=== PATIENT | male | born 1935 | race Two or more races ===

== ENCOUNTER → 2018-05-10 | Outpatient (CLI) | payer BC, MEDICARE ==
--- NOTE | 2018-05-10 12:58 | Diagnostic Imaging Report ---
EXAM: Lumbar spine radiographs-5 views INDICATION: Back pain. COMPARISON: None FINDINGS: BONES: The alignment is within normal limits. No acute displaced fractures. Vertebral body heights are preserved. There is a partially seen diffuse sclerotic appearance of the left iliac bone. DISCS: Mild degenerative disc changes, most pronounced at L5-S1. JOINTS: Mild facet degenerative changes, most pronounced at L5-S1. Degenerative changes of bilateral sacroiliac joints, left greater than right. OTHER: Atherosclerotic vascular calcifications. IMPRESSION: No acute radiographic abnormality. Mild degenerative disc and facet degenerative changes in the lower lumbar spine. Partially seen diffuse sclerotic appearance of the left iliac bone. The findings could represent Paget's disease. Suggest dedicated pelvic radiographs for further evaluation. Signed by: Dr. Santi Shay MD on 05/10/2018 12:55 PM
--- NOTE | 2018-05-10 13:17 | Diagnostic Imaging Report ---
EXAM: Cervical spine radiographs, 7 views INDICATION: Neck pain. COMPARISON: None FINDINGS: BONES: C1-C7 are visualized on the lateral view. Mild reversal of the cervical lordosis. Minimal anterolisthesis of C3 on C4. C1-C2 alignment is maintained. No acute displaced fractures. Vertebral body heights are preserved. DISCS: Moderate degenerative disc changes, most pronounced at C6-C7. JOINTS: Mild facet degenerative changes. Moderate bony neural foraminal stenosis on the left at C3-C4 and bilaterally at C6-C7. Multilevel mild bony neural foraminal stenosis elsewhere. SOFT TISSUES: The prevertebral soft tissues are unremarkable. IMPRESSION: No acute radiographic abnormality Moderate degenerative disc changes with moderate bony neural foraminal stenosis on the left at C3-C4 and bilaterally at C6-C7. Signed by: Dr. Santi Shay MD on 05/10/2018 1:14 PM
== END ==
LOC: RAD 11:00
PROVIDERS: ATTEND Internal Medicine
DX: M54.2 Cervicalgia (principal); M54.5 Low back pain
CPT/HCPCS: 72050; 72110

== ENCOUNTER 2019-03-20 13:48 | Observation (INO) | payer BC, MEDICARE ==
[~2019-03-20] VITALS: Ht 162.6 cm; Wt 56.7 kg
--- OUTSIDE RECORDS SUMMARY | 2019-03-20 13:55 | XMS REPORT | Summary of Care ---
Author Author [facility] - Health Organization [facility] - Health Address Unknown Phone Unavailable Care Team Providers Care Machine Adjuster Name Role Phone Pcp, Patient Does Not Have A PCP Reason for Referral * (Routine) Referred By Contact Referred To Contact Status Reason Specialty Diagnoses / Procedures Ping Hilario MD [address] [place] [address] New Request Pulmonary Diagnoses Function Cough Technologist Cristal mckeon DIAGNOSTIC PROCEDURE Preferred Location: [facility] Reason for Visit * Reason Comments Establish Care whizzing Encounter Details Care Team Description Date [place] [address] [place] [id number] Fellow, Pulmonary Cough (Primary Dx) 09/17/2018 Office Visit [facility] Pulmonary- [facility] [address]th [place] [address] Allergies Comments Active Allergy Reactions Severity Noted Date Penicillin Rash Medium 09/17/2018 documented as of this encounter (statuses as of 09/17/2018) Medications End Date Status Medication Sig Dispensed Refills Start Date Active aspirin (ASPIR-81 ORAL) Take by 0 mouth daily. Active benzonatate 200 mg Take 200 mg 0 capsule by mouth 3 (three) times daily as needed for Cough. Active amLODIPine 10 mg Take 1 tablet 30 tablet 11 tabletIndications: DURBIN by mouth 9 (dyspnea on exertion) daily. Active atorvastatin 40 mg Take 1 tablet 30 tablet tabletIndications: Mixed by mouth at 9 hyperlipidemia bedtime. 12/16/2018 Active albuterol (VENTOLIN HFA) Inhale 2 1 Inhaler 2 90 mcg/actuation Puffs every 4 9 inhalerIndications: Cough (four) hours as needed for Wheezing or Shortness of Breath for up to 90 days. documented as of this encounter (statuses as of 09/17/2018) Active Problems Not on filedocumented as of this encounter (statuses as of 09/17/2018) Social History Date Tobacco Use Types Packs/Day Years Used Never Smoker Smokeless Tobacco: Never Used Sex Assigned at Date Recorded Not on file Industry Job Start Date Occupation Not on file Not on file Not on file Travel End Travel History Travel Start No recent travel history available. documented as of this encounter Last Filed Vital Signs Reading Time Taken Comments Vital Sign 129/66 09/17/2018 8:08 AM CDT Blood Pressure 64 09/17/2018 8:08 AM CDT Pulse 36.2 C (97.1 F) 09/17/2018 8:08 AM CDT Temperature 16 09/17/2018 8:08 AM CDT Respiratory Rate 100% 09/17/2018 8:08 AM CDT Oxygen Saturation - - Inhaled Oxygen Concentration 56.3 kg (124 lb 1.6 oz) 09/17/2018 8:08 AM CDT Weight 162.6 cm (5' 4") 09/17/2018 8:08 AM CDT Height 21.3 09/17/2018 8:08 AM CDT Body Mass Index documented in this encounter Progress Notes * Lucius Oliver [facility] - 09/17/2018 8:00 AM CDT Pulmonary Medicine Clinic Note PCP: PATIENT DOES NOT HAVE A PCP Reason for Visit: Evaluation of Asthma History of Present Illness Galdys Shay is a 82 year old male non-smoker with PMH of intermittent asthma, HTN, HLD, CAD, 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 Patient referred from Cardiology for evaluation of Asthma Patient self reports history asthma, states he has 1-2 exacerbations/ month, camila nly triggered by URI, patient describes episodes as rhinorrhea, postnasal drip, productive cough with white phlegm associated with chest tightness and shortness of breath, symptoms respond to Flonase and Symbicort. He denies any chest pain, fevers or chills. Age at diagnosis: Since Childhood Triggers: Dust Pets: none Hospitalizations: none Intubations: none Last prednisone use:none Albuterol use: none Nighttime Symptoms: none Medications: Symbicort and Flonase prn ACT score: 22 +ve Postnasal drip symptoms No GERD symptoms Patient was seen by Cardiology 2 weeks ago, he is scheduled for Stress ECHO. Current Medications Current Outpatient Medications Medication Sig Dispense Refill amLODIPine 10 mg tablet Take 1 tablet by mouth daily. 30 tablet 11 aspirin (ASPIR-81 ORAL) Take by mouth daily. atorvastatin 40 mg tablet Take 1 tablet by mouth at bedtime. 30 tablet 11 benzonatate 200 mg capsule Take 200 mg by mouth 3 (three) times daily as nee ded for Cough. No current facility-administered medications for this visit. Past Medical History No past medical history on file. No past surgical history on file. No family history on file. Social History Socioeconomic History Marital status: Single Spouse name: Not on file Number of children: Not on file Years of education: Not on file Highest education level: Not on file Occupational History Not on file Social Needs Financial resource strain: Not on file Food insecurity: Worry: Not on file Inability: Not on file Transportation needs: Medical: Not on file Non-medical: Not on file Tobacco Use Smoking status: Never Smoker Smokeless tobacco: Never Used Substance and Sexual Activity Alcohol use: Not on file Drug use: Not on file Sexual activity: Not on file Lifestyle Physical activity: Days per week: Not on file Minutes per session: Not on file Stress: Not on file Relationships Social connections: Talks on phone: Not on file Gets together: Not on file Attends islam service: Not on file Active member of club or organization: Not on file Attends meetings of clubs or organizations: Not on file Relationship status: Not on file Intimate partner violence: Fear of current or ex partner: Not on file Emotionally abused: Not on file Physically abused: Not on file Forced sexual activity: Not on file Other Topics Concern Not on file Social History Narrative Not on file Allergies: Penicillin Immunizations: There is no immunization history on file for this patient. Review of Systems: General: - fever, - chills, - weight loss/increase, - dizziness, - fatigue, - ch dorothea in appetite HEENT: - headache, - change in hearing, - change in vision, - sinus congestion, rhinorrhea, + post nasal drainage, - watery eyes, - sore throat Hematologic: - bleeding disorder Respiratory: + cough, + shortness of breath, - dyspnea on exertion, - wheezing - orthopnea, - PND Cardiovascular: - chest pain, - palpitations, - syncope, + lower extremity swell ing, Gastrointestinal: - abdominal pain, - nausea, - vomiting, - diarrhea, - constipa tion, - melena, - hematochezia, - hematemesis Genitourinary: - dysuria, - hematuria, - increased frequency, - difficulty urina ting, - difficulty initiating Neurologic: -weakness, -dizziness, -headache Endocrine: - heat/cold intolerance, -polyuria Musculoskeletal: - joint pain, - back pain, - muscle spasms Integument: - rash, - lesion Psych: -depression, -anxiety Physical Exam and Objective Data BP 129/66 | Pulse 64 | Temp 36.2 C (97.1 F) | Resp 16 | Ht 5' 4" (1.626 m) | Wt 124 lb 1.6 oz (56.3 kg) | SpO2 100% | BMI 21.30 kg/m Consitutional: patient alert and in no acute distress Head: normocephalic and atraumatic Eyes: normal external eye, corneas clear, conjunctiva and sclera normal and pup ils equal, round, reactive to light and accomodation ENT: nasal passages clear; moist oral mucosa, no erythema or tonsillar enlargem ent, posterior pharynx clear; no cervical lymphadenopathy Cardiovascular: regular rate and rhythm, no murmur, no JVD, + lower extremity p itting edema, symmetrical peripheral pulses Respiratory: clear to auscultation bilaterally, without wheezes, rales or rhonc hi Gastrointestinal: soft, non-tender, non-distended abdomen Musculoskeletal: No clubbing or cyanosis Neurologic: normal gait and station, normal range, cranial nerves II - XII lopez sly intact Integument: skin color, texture and turgor are normal; no bruising, rashes or l esions noted Lymphatic: No appreciable supraclavicular, submandibular or axillary LAD appreci able Laboratory CBC BMP LFTs No results found for: WBC No results found for: NA No results found for: ALKPH OS No results found for: HGB No results found for: K No results found for: ALT No results found for: HCT No results found for: CA No results found for: AST No results found for: PLT No results found for: CL No results found for: RBC No results found for: BUN Cardio No results found for: CREAT No results found for: NTBNP Thyroid No results found for: TSH No components found for: GLUC Assessment & Plan Mr. Gladys Shay is a 82 year old male non-smoker with history intermittent ast hma 1.Intermittent asthma -D/c symbicort -Ventolin prn -Asthma action plan discussed with the patient -Patient educated on Inhaler technique and given the appropriate resources -Will schedule PFTs and CXR 2.Allergic rhinitis, controlled with fonase -Continue with Flonase Plan was reviewed with Dr Barrios and discussed with the patient. All concerns were addressed and all questions answered. My diagnostic impression and treatment plans were discussed at length with the p atient. All side effects as well as drug-drug interactions and risks discussed at length . Follow up visit in 4 months Call or return to clinic prn if these symptoms worsen or fail to improve as anti cipated Thank you for involving us in the care of this patient. Lucius Oliver MD PGY4 Fellow Pulmonary & Critical Care Medicine Pager [phone] documented in this encounter Plan of Treatment Care Team Description Date Type Specialty Fellow, Pulmonary 01/17/2019 Office Visit Pulmonary Disease Order Schedule Name Type Priority Associated Diagnoses Expected: 09/17/2018, Expires: 03/20/2020 XR CHEST 2 VW IMAGING Routine Cough Expected: 09/18/2018, Expires: 03/20/2020 DIAGNOSTIC PROCEDURE PULMONARY Routine Cough Preferred Location: [facility] Health Maintenance Due Date Last Done Comments DTaP,Tdap,and Td Vaccines 1954 (1 - Tdap) Zoster Recombinant 11/15/1987 Vaccine (SHINGRIX) (1 of 2) Medicare Wellness Visit 2002 PNEUMOCOCCAL VACCINES 65+ 2002 (1 of 2 - PCV13) INFLUENZA VACCINE 10/13/2018 documented as of this encounter Results Not on filedocumented in this encounter Visit Diagnoses Diagnosis Cough - Primary documented in this encounter Insurance Type Payer Benefit Subscriber ID Effective Phone Address Plan / Dates Group PPO/POS BCBS [facility] BCBS FED [id number] [id number] [place] [address] documented as of this encounter
--- OUTSIDE RECORDS SUMMARY | 2019-03-20 13:55 | XMS REPORT ---
Author [facility] Address Unknown Phone Unavailable Care Team Providers Care Car Salter Name Role Phone TAWANNA STRONG Unavailable Unavailable Problems This patient has no known problems. Allergies, Adverse Reactions, Alerts This patient has no known allergies or adverse reactions. Medications This patient has no known medications. Results Test Description Test Time Test Comments Text Results Atomic Results Result Comments CERVICAL SPINE 4 OR 5 VIEWS 2018-05-10 13:10:00 [place] [address] Patient Name: EMERSON SHAY MR #: [id number] : 1935 Age/Sex: 82/M Req #: [id number] Adm Physician: Ordered by: TAWANNA STRONG MD Report #: [id number] Location: [facility] Room/Bed: Procedure: [id number] DX/CERVICAL SPINE 4 OR 5 VIEWS Exam Date: 05/10/18 Exam Time: 1145 REPORT STATUS: Signed EXAM: Cervical spine radiographs, 7 views IND ICATION: Neck pain. COMPARISON: None FINDINGS: BONES: C1-C7 are visualized on the lateral view. Mild reversal of the cervical lordosis. Minimal anterolisthesis of C3 on C4. C1-C2 alignment is maintained. No acute displaced fractures. Vertebral body heights are preserved. DISCS: Moderate degenerative disc changes, most pronounced at C6-C7. JOINTS: Mild facet degenerative changes. Moderate bony neural foraminal stenosis on the left at C3-C4 and bilaterally at C6-C7. Multilevel mild bony neural foraminal stenosis elsewhere. SOFT TISSUES: The prevertebral soft tissues are unremarkable. IMPRESSION: No acute radiographic abnormality Moderate degenerative disc changes with moderate bony neural foraminal stenosis on the left at C3-C4 and bilaterally at C6-C7. Signed by: Dr. Nisreen Shay MD on 05/10/2018 1:14 PM Dictated By: NISREEN SHAY MD 1314 Transcribed By: ANDERS on 05/10/18 1314 COPY TO: TAWANNA STRONG MD SP LUMBAR, COMPLETE MIN 4VW 2018-05-10 12:46:00 [place] [address] Patient Name: EMERSON SHAY MR #: [id number] : 1935 Age/Sex: 82/M Req #: [id number] Adm Physician: Ordered by: TAWANNA STRONG MD Report #: [id number] Location: [facility] Room/Bed: Procedure: [id number] DX/SP LUMBAR, COMPLETE MIN 4VW Exam Date: 05/10/18 Exam Time: 1145 REPORT STATUS: Signed EXAM: Lumbar spine radiographs-5 views INDICA TION: Back pain. COMPARISON: None FINDINGS: BONES: The alignment is within normal limits. No acute displaced fractures. Vertebral body heights are preserved. There is a partially seen diffuse sclerotic appearance of the left iliac bone. DISCS: Mild degenerative disc changes, most pronounced at L5-S1. JOINTS: Mild facet degenerative changes, most pronounced at L5-S1. Degenerative changes of bilateral sacroiliac joints, left greater than right. OTHER: Atherosclerotic vascular calcifications. IMPRESSION: No acute radiographic abnormality. Mild degenerative disc and facet degenerative changes in the lower lumbar spine. Partially seen diffuse sclerotic appearance of the left iliac bone. The findings could represent Paget's disease. Suggest dedicated pelvic radiographs for further evaluation. Signed by: Dr. Nisreen Shay MD on 05/10/2018 12:55 PM Dictated By: NISREEN SHAY MD 1258 Transcribed By: ANDERS on 05/10/18 1259 COPY TO: TAWANNA STRONG MD
--- OUTSIDE RECORDS SUMMARY | 2019-03-20 13:55 | XMS REPORT | Summary of Care ---
Author Author [facility] - Health Organization [facility] - Health Address Unknown Phone Unavailable Care Team Providers Care Teacher Drama Name Role Phone Pcp, Patient Does Not Have A PCP Reason for Visit * Reason Comments Cough Encounter Details Care Team Description Date Type Department Lucius Oliver [address] [phone] Cough 09/16/2018 Case Management [facility] and [address] [phone] Allergies Comments Active Allergy Reactions Severity Noted [...] 40 mg Take 1 tablet 30 tablet 11 tabletIndications: Mixed by mouth at 9 hyperlipidemia bedtime. documented as of this encounter (statuses as of 09/17/2018) Active Problems Not on filedocumented as of this encounter (statuses as of 09/17/2018) Social History Date Tobacco Use Types Packs/Day Years Used Never Assessed Sex Assigned at Date Recorded Not on file Industry Job Start Date Occupation Not on file Not on file Not on file Travel End Travel History Travel Start No recent travel history available. documented as of this encounter Last Filed Vital Signs Not on filedocumented in this encounter Plan of Treatment Care Team Description Date Type Specialty Surya Ferro [id number] [place], [place] [id number] Test, Vtc Pulmonary Function 09/25/2018 Customer Relations Advisor Pulmonary Function Visit Technologist Fellow, Pulmonary 01/17/2019 Office Visit Pulmonary Disease Health Maintenance Due Date Last Done Comments DTaP,Tdap,and Td Vaccines 1956 (1 - Tdap) Zoster Recombinant 11/15/1987 Vaccine (SHINGRIX) (1 of 2) Medicare Wellness Visit 2002 PNEUMOCOCCAL VACCINES 65+ 2002 (1 of 2 - PCV13) INFLUENZA VACCINE 10/13/2018 documented as of this encounter Results Not on filedocumented in this encounter Insurance Type Payer Benefit Subscriber ID Effective Phone Address Plan / Dates Group PPO/POS [facility] [id number] [id number] [place] [address] Medicare MEDICARE MEDICARE xxxxxxxxxxx 2002- [phone] [id number] [place] [phone] documented as of this encounter
--- OUTSIDE RECORDS SUMMARY | 2019-03-20 13:55 | XMS REPORT | Summary of Care ---
Author Author [facility] - Health Organization [facility] - Health Address Unknown Phone Unavailable Care Team Providers Care Dye Padder Operator Name Role Phone Pcp, Patient Does Not Have A PCP Reason for Visit * Reason Comments Refill Request Encounter Details Care Team Description Date Type Department Marbin Hernandez MD [address] [place] [phone] Refill Request 09/24/[address] [address] Allergies Comments Active Allergy Reactions Severity Noted Date Penicillin Rash Medium 09/17/2018 documented as of this encounter (statuses as of 09/26/2018) Medications End Date Status Medication Sig Dispensed [...] of Breath for up to 90 days. Active furosemide 20 mg tablet Take 1 tablet 30 tablet 1 by mouth 9 daily. documented as of this encounter (statuses as of 09/26/2018) Active Problems Not on filedocumented as of this encounter (statuses as of 09/26/2018) Social History Date Tobacco Use Types Packs/Day [...] Treatment Care Team Description Date Type Specialty Marbin Hernandez MD [address] [place] [phone] 10/28/2018 Office Visit Needle Punch Operator, Pulmonary 01/17/2019 Office Visit Pulmonary Disease Health Maintenance Due Date Last Done Comments DTaP,Tdap,and Td Vaccines 1956 (1 - Tdap) Zoster Recombinant 11/15/1987 Vaccine (SHINGRIX) (1 of 2) Medicare Wellness Visit 2002 PNEUMOCOCCAL VACCINES 65+ 2002 (1 of 2 - PCV13) INFLUENZA VACCINE (#1) 2018 documented as of this encounter Results Not on filedocumented in this encounter Insurance Type Payer Benefit Subscriber ID Effective Phone Address Plan / Dates Group [facility] FED [id number] [id number] [place] [address] Medicare MEDICARE MEDICARE xxxxxxxxxxx 2002- [phone] [id number] [place] [address] documented as of this encounter
--- OUTSIDE RECORDS SUMMARY | 2019-03-20 13:55 | XMS REPORT | Summary of Care ---
Author Author [facility] - Health Organization [facility] - Health Address Unknown Phone Unavailable Care Team Providers Care Equipment Operator Warehouse Name Role Phone Pcp, Patient Does Not Have A PCP Reason for Referral * (Routine) Referred By Contact Referred To Contact Status Reason Specialty Diagnoses / Procedures Ping Hilario MD [address] [place] [address] New Request Pulmonary Diagnoses Function Cough Technologist Cristal mckeon DIAGNOSTIC PROCEDURE Preferred Location: [facility] Reason for Visit * Reason Comments Establish Care whizzing Encounter Details Care Team Description [place] [address] [place] [address] Fellow, Pulmonary Cough (Primary Dx) 09/17/2018 Office Visit [facility] Pulmonary- [facility] [address] [facility]th [place] [address] Allergies Comments Active Allergy Reactions [...] Evaluation of Asthma History of Present Illness Gladys Shay is a 82 year old male non-smoker with PMH of intermittent asthma, HTN, HLD, CAD, 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 Patient referred from Cardiology for evaluation of [...] file Gets together: Not on file Attends taoist service: Not on file Active member of [...] Fellow Pulmonary & Critical Care Medicine Pager [phone] documented in this encounter Plan of Treatment Order Schedule Name Type Priority Associated Diagnoses Expected: 09/17/2018, Expires: 03/20/2020 XR CHEST 2 VW IMAGING Routine Cough Expected: 09/18/2018, Expires: 03/20/2020 DIAGNOSTIC PROCEDURE PULMONARY Routine Cough Preferred Location: [facility] Health Maintenance Due Date Last [...] Phone Address Plan / Dates Group PPO/POS [facility] [id number] [id number] [place] [address] documented as of this encounter
--- OUTSIDE RECORDS SUMMARY | 2019-03-20 13:55 | XMS REPORT | Summary of Care ---
Author Author [facility] - Health Organization [facility] - Health Address Unknown Phone Unavailable Care Team Providers Care Apple Checker Name Role Phone Pcp, Patient Does Not Have A PCP Encounter Details Care Team Description Date Type Department Doctor Unassigned, [place] [address] [place] [address] 09/05/2018 Orders Only [address] [address] Allergies No Known Allergiesdocumented as of this encounter (statuses as of 09/11/2018) Medications End Date Status Medication Sig Dispensed [...] as of this encounter (statuses as of 09/11/2018) Active Problems Not on filedocumented as of this encounter (statuses as of 09/11/2018) Social History Date Tobacco Use Types Packs/Day [...] Date Type Specialty Marbin Hernandez MD [address] [place] [phone] Echo, Clc-Bls Stress 09/17/2018 Appointment Echocardiograph Health Maintenance Due Date Last Done Comments DTaP,Tdap,and Td Vaccines 1956 (1 - Tdap) Zoster Recombinant 11/15/1987 Vaccine (SHINGRIX) (1 of 2) Medicare Wellness Visit 2002 Osteoporosis Screening 2002 PNEUMOCOCCAL VACCINES 65+ 2002 (1 of 2 - PCV13) INFLUENZA VACCINE 10/13/2018 documented as of this encounter Procedures Comments Procedure Name Priority Date/Time Associated Diagnosis EXTERNAL PROVIDER RECORDS Routine 09/05/2018 12:01 AM CDT documented in this encounter Results Not on filedocumented in this encounter Insurance Type Payer Benefit Subscriber ID Effective Phone Address Plan / Dates Group PPO/POS BCBS [facility] BCBS FED [id number] [id number] [place] [address] documented as of this encounter
--- OUTSIDE RECORDS SUMMARY | 2019-03-20 13:55 | XMS REPORT | Summary of Care ---
Author Author [facility] - Health Organization [facility] - Health Address Unknown Phone Unavailable Care Team Providers Care Director Of Audiology Name Role Phone Pcp, Patient Does Not Have A PCP Encounter Details Care Team Description Date Type Department Doctor Unassigned, [place] [address] [place] [id number] 09/25/2018 Orders Only [facility] [address] [place] [address] Allergies Comments Active Allergy Reactions Severity Noted Date Penicillin Rash Medium 09/17/2018 documented as of this encounter (statuses as of 09/25/2018) Medications End Date Status Medication Sig Dispensed [...] as of this encounter (statuses as of 09/25/2018) Active Problems Not on filedocumented as of this encounter (statuses as of 09/25/2018) Social History Date Tobacco Use Types Packs/Day [...] Type Specialty Surya Ferro [id number] [place], [place] [address] Test, Vtc Pulmonary Function 09/25/2018 Hat Band Attacher Pulmonary Function Visit Technologist Fellow, Pulmonary 01/17/2019 [...] Date/Time Associated Diagnosis EXTERNAL PROVIDER RECORDS Routine 09/25/2018 12:01 AM CDT documented in this encounter Results Not on filedocumented in this encounter Insurance Type Payer Benefit Subscriber ID Effective Phone Address Plan / Dates Group PPO/POS [facility] BC FED [id number] [address] [place] [address] Medicare MEDICARE MEDICARE xxxxxxxxxxx 2002- [phone] [address] Present [id number] [place] [phone] documented as of this encounter
--- OUTSIDE RECORDS SUMMARY | 2019-03-20 13:55 | XMS REPORT | Summary of Care ---
Author Author [facility] - Health Organization [facility] - Health Address Unknown Phone Unavailable Care Team Providers Care Social Services Specialist Name Role Phone Pcp, Patient Does Not Have A PCP Reason for Referral * (Routine) Referred By Contact Referred To Contact Status Reason Specialty Diagnoses / Procedures Ping Hilario MD [address] [place] [address] New Request Pulmonary Diagnoses Function Cough Technologist Cristal mckeon DIAGNOSTIC PROCEDURE Preferred Location: [facility] Reason for Visit * Reason Comments Establish Care whizzing Encounter Details Care Team Description [place] [address] [place] [address] Fellow, Pulmonary Cough (Primary Dx) 09/17/2018 Office Visit [facility] Pulmonary- [facility] [address] [facility], [address]th [place] [address] Allergies Comments Active Allergy Reactions [...] HLD, CAD, s/p 1V CABG 12/2014 in [place]. Patient referred from Cardiology for evaluation of [...] file Gets together: Not on file Attends quaker service: Not on file Active member of [...] Fellow Pulmonary & Critical Care Medicine Pager [phone] documented in this encounter Plan of Treatment Order Schedule Name Type Priority Associated Diagnoses Expected: 09/17/2018, Expires: 03/20/2020 XR CHEST 2 VW IMAGING Routine Cough Expected: 09/18/2018, Expires: 03/20/2020 DIAGNOSTIC PROCEDURE PULMONARY Routine Cough Preferred Location: [facility] Health Maintenance Due Date Last [...] Phone Address Plan / Dates Group PPO/POS [facility] [id number] [id number] [place] [address] documented as of this encounter
--- OUTSIDE RECORDS SUMMARY | 2019-03-20 13:55 | XMS REPORT | Summary of Care ---
Author Author [facility] - Health Organization [facility] - Health Address Unknown Phone Unavailable Care Team Providers Care Fish Packer Name Role Phone Pcp, Patient Does Not Have A PCP Reason for Visit * Reason Comments Refill Request Encounter Details Care Team Description Date Type Department Marbin Hernandez MD [address] [place] [phone] Refill Request 09/24/[address] [address] Allergies Comments Active Allergy Reactions [...] Plan / Dates Group PPO/POS [facility] BCBS FED [id number] [id number] [place] [address] Medicare MEDICARE MEDICARE xxxxxxxxxxx 2002- [phone] [address] Present [id number] [place] [phone] documented as of this encounter
--- OUTSIDE RECORDS SUMMARY | 2019-03-20 13:55 | XMS REPORT | Summary of Care ---
Author Author [facility] - Health Organization [facility] - Health Address Unknown Phone Unavailable Care Team Providers Care Study Assistant Name Role Phone Pcp, Patient Does Not Have A PCP Reason for Visit * Reason Comments Assessment Results Refill Request Encounter Details Care Team Description Date Type Department Marbin Hernandez MD [address] [place] [address] Assessment; Results; Refill Request 09/19/2018 Telephone [facility] Cardiology[address] [address] Allergies Comments Active Allergy Reactions Severity Noted Date Penicillin Rash Medium 09/17/2018 documented as of this encounter (statuses as of 09/23/2018) Medications End Date Status Medication Sig Dispensed [...] as of this encounter (statuses as of 09/23/2018) Active Problems Not on filedocumented as of this encounter (statuses as of 09/23/2018) Social History Date Tobacco Use Types Packs/Day [...] Type Specialty Surya Ferro [id number] [place], [place] [address] Test, Vtc Pulmonary Function 09/25/2018 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 Pulmonary Function Visit Technologist Fellow, Pulmonary 01/17/2019 Office Visit Pulmonary Disease Order Schedule Name Type Priority Associated Diagnoses 1 Occurrences starting 09/20/2018 until 11/20/2018 CBC W/O DIFF LAB Routine Essential hypertension Coronary artery disease involving [place] coronary artery of [place] heart without angina pectoris 1 Occurrences starting 09/20/2018 until 11/20/2018 BASIC METABOLIC PANEL LAB Routine Essential hypertension (22752)(NA, K, CL, CO2, Coronary artery disease GLUCOSE, BUN, CREATININE, involving [place] coronary CA) artery of [place] heart without angina pectoris Health Maintenance Due Date Last Done Comments DTaP,Tdap,and Td Vaccines 1956 (1 - Tdap) Zoster Recombinant 11/15/1987 Vaccine (SHINGRIX) (1 of 2) Medicare Wellness Visit 2002 PNEUMOCOCCAL VACCINES 65+ 2002 (1 of 2 - PCV13) INFLUENZA VACCINE 10/13/2018 documented as of this encounter Results Not on filedocumented in this encounter Visit Diagnoses Diagnosis Essential hypertension - Primary Unspecified essential hypertension Coronary artery disease involving [place] coronary artery of [place] heart without angina pectoris Cough documented in this encounter Insurance Type Payer Benefit Subscriber ID Effective Phone Address Plan / Dates Group PPO/POS BCBS [facility] BCBS [facility] [id number] [id number] [place] [address] Medicare MEDICARE MEDICARE xxxxxxxxxxx 2002- [phone] [address] Present [id number] [place] [address] documented as of this encounter
--- OUTSIDE RECORDS SUMMARY | 2019-03-20 13:55 | XMS REPORT | Summary of Care ---
Author Author [facility] - Health Organization [facility] - Health Address Unknown Phone Unavailable Care Team Providers Care Joy Loader Name Role Phone Pcp, Patient Does Not Have A PCP Reason for Visit * Reason Comments Assessment Results Refill Request Encounter Details Care Team Description Date Type Department Marbin Hernandez MD [address] [place] [address] Assessment; Results; Refill Request 09/19/2018 Telephone [facility] Cardiology[address] [address] Allergies Comments Active Allergy Reactions Severity Noted Date Penicillin Rash Medium 09/17/2018 documented as of this encounter (statuses as of 09/20/2018) Medications End Date Status Medication Sig Dispensed [...] as of this encounter (statuses as of 09/20/2018) Active Problems Not on filedocumented as of this encounter (statuses as of 09/20/2018) Social History Date Tobacco Use Types Packs/Day [...] Type Specialty Surya Ferro [id number] [place], [place] [id number] Test, Vtc Pulmonary Function 09/25/2018 Managing Editor Pulmonary Function Visit Technologist Fellow, Pulmonary 01/17/2019 Office Visit Pulmonary Disease Order Schedule Name Type Priority Associated Diagnoses 1 Occurrences starting 09/20/2018 until 11/20/2018 CBC W/O DIFF LAB Routine Essential hypertension Coronary artery disease involving [place] coronary artery of [place] heart without angina pectoris 1 Occurrences starting 09/20/2018 until 11/20/2018 BASIC METABOLIC PANEL LAB Routine Essential hypertension (84112)(NA, K, CL, CO2, Coronary artery disease GLUCOSE, BUN, CREATININE, involving [place] coronary CA) artery of [place] heart without angina pectoris Health Maintenance Due [...] Unspecified essential hypertension Coronary artery disease involving [place] coronary artery of [place] heart without angina pectoris Cough documented in this encounter Insurance Type Payer Benefit Subscriber ID Effective Phone Address Plan / Dates Group PPO/POS BCBS [facility] BCBS [facility] [id number] [id number] [place] [address] Medicare MEDICARE MEDICARE xxxxxxxxxxx 2002- [phone] [address] Present [id number] [place] [address] documented as of this encounter
--- OUTSIDE RECORDS SUMMARY | 2019-03-20 13:55 | XMS REPORT | Summary of Care ---
Author Author [facility] - Health Organization [facility] - Health Address Unknown Phone Unavailable Care Team Providers Care Rn Lab Name Role Phone Pcp, Patient Does Not Have A PCP Reason for Visit * Reason Comments Refill Request Encounter Details Care Team Description Date Type Department Marbin Hernandez MD [address] [place] [phone] Refill Request 09/24/[address] [address] Allergies Comments Active Allergy Reactions [...] Date Type Specialty Marbin Hernandez MD [address] [place] [phone] 10/28/2018 Office Visit Emergency Department, Pulmonary 01/17/2019 Office Visit Pulmonary Disease Health [...] Phone Address Plan / Dates Group [facility]PO[facility] FED [id number] [id number] [place] [address] Medicare MEDICARE MEDICARE xxxxxxxxxxx 2002- [phone] [id number] [place] [address] documented as of this encounter
--- OUTSIDE RECORDS SUMMARY | 2019-03-20 13:55 | XMS REPORT | Summary of Care ---
Author Author [facility] - Health Organization [facility] - Health Address Unknown Phone Unavailable Care Team Providers Care Learning Analyst Name Role Phone Pcp, Patient Does Not Have A PCP Encounter Details Care Team Description Date Type Department Ping Hilario MD [address] [place], [place] [address] Arrived 09/17/2018 [facility] Radiology Encounter [address] [place] [address] Allergies Comments Active Allergy Reactions Severity Noted Date Penicillin Rash Medium 09/17/2018 documented as of this encounter (statuses as of 09/18/2018) Medications End Date Status Medication Sig Dispensed [...] as of this encounter (statuses as of 09/18/2018) Active Problems Not on filedocumented as of this encounter (statuses as of 09/18/2018) Social History Date Tobacco Use Types Packs/Day [...] Team Description Date Type Specialty Surya Ferro [address] [place] [address] [phone] Test, Vtc Pulmonary Function 09/25/2018 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 Pulmonary Function Visit Technologist Fellow, Pulmonary 01/17/2019 Office Visit Pulmonary Disease Health Maintenance Due Date Last Done Comments DTaP,Tdap,and Td Vaccines 1956 (1 - Tdap) Zoster Recombinant 11/15/1987 Vaccine (SHINGRIX) (1 of 2) Medicare Wellness Visit 2002 PNEUMOCOCCAL VACCINES 65+ 2002 (1 of 2 - PCV13) INFLUENZA VACCINE 10/13/2018 documented as of this encounter Procedures Comments Procedure Name Priority Date/Time Associated Diagnosis XR CHEST 2 VW Routine 09/17/2018 Cough 10:06 AM CDT documented in this encounter Results * XR CHEST 2 VW (09/17/2018 10:06 AM CDT) Specimen Narrative Performed At * * * * * * * * ORIGINAL REPORT * * * * * * * * PACS/VR/DOSE EXAM: XR CHEST 2 VW HISTORY: COUGH COMPARISON: None. FINDINGS: The heart and great vessels are normal except for calcium in the arch of the aorta. An atrial appendage clip is in the expected position. The lungs are satisfactorily expanded and clear except for some basilar partly calcified granulomas. Procedure Note [facility], Radiant Results Inft User - 09/17/2018 10:10 AM CDT * * * * * * * * ORIGINAL REPORT * * * * * * * * EXAM: XR CHEST 2 VW HISTORY: COUGH COMPARISON: None. FINDINGS: The heart and great vessels are normal except for calcium in the arch of the aorta. An atrial appendage clip is in the expected position. The lungs are satisfactorily expanded and clear except for some basilar partly calcified granulomas. Performing Organization Address City/State/Zipcode Phone Number PACS/VR/DOSE documented in this encounter Visit Diagnoses Diagnosis Cough documented in this encounter Insurance Type Payer Benefit Subscriber ID Effective Phone Address Plan / Dates Group PPO/POS BCBS [facility] BCBS FED [id number] [id number] [place] [address] documented as of this encounter
--- OUTSIDE RECORDS SUMMARY | 2019-03-20 13:55 | XMS REPORT | Summary of Care ---
Author Author [facility] - Health Organization [facility] - Health Address Unknown Phone Unavailable Care Team Providers Care Mobile Developer Name Role Phone Pcp, Patient Does Not Have A PCP Reason for Visit * Reason Comments Results STRESS TEST Refill Request Patient has swollen feet and wants medication Encounter Details Care Team Description Date Type Department Marbin Hernandez MD [address] [place] [address] Results (STRESS TEST); Refill Request (Patient has swollen feet and wants medication ) 09/13/2018 Telephone [facility] [place] [address] [place] [address] Allergies Comments Active Allergy Reactions Severity [...] Type Specialty Surya Ferro [address] [place] [address] [phone] Test, Vt Pulmonary Function 09/25/2018 Radiology Physician Assistant Pulmonary Function Visit Technologist Fellow, Pulmonary 01/17/2019 [...] Phone Address Plan / Dates Group PPO/POS [facility] [id number] [id number] [place] [address] Medicare MEDICARE MEDICARE xxxxxxxxxxx 2002- [phone] [id number] [place] [address] documented as of this encounter
--- OUTSIDE RECORDS SUMMARY | 2019-03-20 13:55 | XMS REPORT | Summary of Care ---
Author Author [facility] [place] Organization [facility] Address Unknown Phone Unavailable Care Team Providers Care Cardiopulmonary Specialist Name Role Phone Pcp, Patient Does Not Have A PCP Reason for Visit * Reason Comments Appointment Encounter Details Care Team Description Date Type Department Fellow, Pulmonary Appointment 09/11/2018 Telephone [facility] Pulmonary- [facility] [address] [place] [address] Allergies No Known Allergiesdocumented as of this [...] Team Description Date Type Specialty Fellow, Pulmonary 09/17/2018 Office Visit Pulmonary Disease Marbin Hernandez MD [address] [place] [address] Echo, Clc-Bls Stress 09/17/2018 Appointment Echocardiograph Health [...] Phone Address Plan / Dates Group PPO/POS [facility] BC FED [id number] [id number] [place] [address] documented as of this encounter
[2019-03-20] MEDS ORDERED: DILTIAZEM HCL VIAL 5 ML ONE (14:27)
[2019-03-20 14:43] LABS: BASOPHILS % 0.6 % (0.0-1.0); EOSINOPHILS # (AUTO) 0.3 (0.0-0.4); EOSINOPHILS % 3.7 % (0.0-6.0); HEMATOCRIT 43.2 % (38.2-49.6); HEMOGLOBIN 14.1 g/dL (14.0-18.0); LYMPHOCYTES # (AUTO) 2.3 (1.0-3.2); LYMPHOCYTES % 34.4 % (18.0-39.1); MEAN CORPUSCULAR HEMOGLOBIN 31.1 pg (28-32); MEAN CORPUSCULAR HGB CONC 32.6 g/dL (31-35); MEAN CORPUSCULAR VOLUME 95.4 fL (81-99); MONOCYTES # (AUTO) 0.8 (0.2-0.8); MONOCYTES % 12.2 % (4.4-11.3); NEUTROPHILS # (AUTO) 3.3 (2.1-6.9); NEUTROPHILS % 48.8 % (38.7-80.0); PLATELET COUNT 192 x10e3/uL (140-360); RED BLOOD COUNT 4.53 x10e6/uL (4.3-5.7); RED CELL DISTRIBUTION WIDTH 13.8 % (11.7-14.4)
--- NOTE | 2019-03-20 14:44 | NUR ---
10mg of iv dilitazem/eliquis given
--- NOTE | 2019-03-20 14:47 | Diagnostic Imaging Report ---
EXAMINATION: CHEST SINGLE (PORTABLE) INDICATION: Shortness of breath, palpitations COMPARISON: None FINDINGS: LINES/TUBES:EKG leads overlie the chest. LUNGS:The lungs are hyperinflated. Mild bibasilar subsegmental atelectasis. No focal consolidation or pulmonary edema. Right lung base calcified granuloma. PLEURA:No pleural effusion or pneumothorax. MEDIASTINUM:The cardiomediastinal silhouette appears normal in size and shape. BONES/SOFT TISSUES:No acute osseous injury. Sternotomy wires in place. ABDOMEN:No free air under the diaphragm. IMPRESSION: Hyperinflated lungs. No focal pneumonia or pulmonary edema. Bibasilar subsegmental atelectasis. Signed by: Benigno Leo MD on 03/20/2019 2:44 PM
[2019-03-20 14:51] LABS: INR 0.97; PROTHROMBIN TIME 13.1 seconds (11.9-14.5)
[2019-03-20] MEDS ORDERED: APIXABAN 5 MG TABLET ONE (14:59)
[2019-03-20 15:00] LABS: ALBUMIN 4.3 g/dL (3.5-5.0); ALBUMIN/GLOBULIN RATIO 1.3 (0.8-2.0); ANION GAP 14.1 mmol/L (8-16); CALCIUM 9.3 mg/dL (8.4-10.2); CREATININE, SERUM 1.4 mg/dL (0.72-1.25); POTASSIUM 4.1 mmol/L (3.5-5.1)
[2019-03-20 15:07] LABS: CREATINE KINASE MB 3.2 ng/mL (0-5.0)
[2019-03-20 15:36] LABS: CLARITY,URINE CLEAR (CLEAR); COLOR,URINE YELLOW (YELLOW)
[2019-03-20 15:37] LABS: BILIRUBIN,URINE NEGATIVE (NEGATIVE); KETONES,URINE NEGATIVE (NEGATIVE); LEUKOCYTE ESTERASE ,URINE NEGATIVE (NEGATIVE); NITRITE,URINE NEGATIVE (NEGATIVE); PROTEIN,URINE DIPSTICK NEGATIVE (NEGATIVE); URINE UROBILINOGEN 0.2 mg/dL (0.2 - 1)
[2019-03-20 15:51] LABS: THYROID STIMULATING HORMONE 3.394 uIU/mL (0.350-4.940)
--- NOTE | 2019-03-20 16:49 | NUR ---
DR. GALARZA HERE TO SEE THE PT.
[2019-03-20 17:45] VITALS: BP 146/96
--- NOTE | 2019-03-20 18:00 | NUR ---
Pt received from ER at this time. Pt is aox4 and able to verbalize needs. Denies any pain at this time. Denies SOB. Dr. Vance was notified and received orders to consult Dr. Landrum. 0 s/s of acute distress noted.
[2019-03-20] MEDS ORDERED: ASPIR 8181 MG PO (18:24)
[2019-03-20] MEDS ORDERED: COREG3.125 MG PO (18:24)
[2019-03-20] MEDS ORDERED: LIPITOR40 MG PO (18:24)
[2019-03-20] MEDS ORDERED: TESSALON PERLE100 MG PO (18:26)
[2019-03-20] MEDS ORDERED: LORATADINE10 MG PO (18:26)
[2019-03-20] MEDS ORDERED: LORATADINE 10 MG TAB PO PRN (18:30)
[2019-03-20 18:39] VITALS: BP 146/96
--- NOTE | 2019-03-20 20:30 | NUR ---
Blood pressure has been reassessed and found to be 148/80 HR 91. patient is resting comfortably in the bed in no acute distress. will continue to monitor patient.
[2019-03-20] MEDS: ATORVASTATIN 20 MG TAB PO SCH (21:00)
[2019-03-20 21:12] VITALS: BP 171/110
--- NOTE | 2019-03-20 22:31 | History and Physical ---
CHIEF COMPLAINT: This is an 83-year-old male who comes in with palpitation. HISTORY OF PRESENT ILLNESS: This is Mr. Shay who has known history of CAD, hypertension, hyperlipidemia, history of CABG, was in usual state of health until the day prior to admission the patient started to have palpitation. This is preceded by him stopping his carvedilol medication twice a day. Apparently, the patient was told to take carvedilol twice a day by the pharmacist and this attribute him getting palpitation. PAST MEDICAL HISTORY: History of asthma, history of CAD, history of hyperlipidemia, history of hypertension, history of hypothyroidism. PAST SURGICAL HISTORY: History of coronary artery bypass in 2014, hernia surgery on 2007, cataract surgery in 2006 and had a right foot surgery in 2014. The patient has had cardiac stents and also carotid stents in the past. The patient also has history of pneumonia. FAMILY HISTORY: Positive for hypertension, history of asthma and also coronary artery disease. SOCIAL HISTORY: Never smoker, no EtOH, no IV drug abuse and no history of smoking either. MEDICATIONS: The patient takes at home are carvedilol 6.25 mg once daily, atorvastatin 10 mg once daily, aspirin 81 mg once daily, and calcium tablets once a day. ALLERGIES: ALLERGIC TO PENICILLIN. REVIEW OF SYSTEMS: Negative for chest pain. Positive for palpitation. No nausea, no vomiting. No diarrhea. No constipation. No rectal bleeding. No hematochezia. No hematemesis and/or diplopia. No blurry vision. PHYSICAL EXAMINATION: GENERAL: Alert and oriented x3. VITAL SIGNS: Temperature is 96.8, pulse of 88, respirations of 15, blood pressure is 178/120, pulse oximetry of 100% on room air. HEENT: Normocephalic, atraumatic. Pupils are reactive to light and accommodation. CVS: S1 and S2. Normal rate now regular rate and rhythm. ABDOMEN: Nontender, nondistended. EXTREMITIES: No clubbing, no cyanosis, no edema. LABORATORY VALUES: The patient's white count was 6.74, hemoglobin of 14.1, hematocrit of 43.2, platelet count of 192. Chemistry shows sodium 136, potassium of 4.2, BUN of 9, creatinine 1.40, glucose of 96, ALT AST normal. Total bilirubin is 132. BNP was 381. TSH is 3.395. Urine normal. Coags; INR 0.97. IMAGING STUDIES: Chest x-ray done shows hyperinflated lungs. No focal pneumonia, bibasilar segmental atelectasis, right lung based calcified granuloma also present. ASSESSMENT: 1. The patient comes in with atrial fibrillation with rapid ventricular response. The patient was given IV Cardizem and also started on Eliquis. The rate is controlled at this time. Blood pressure is elevated. We will continue to monitor the patient. Anticoagulation has been started already. Echocardiogram will be done and also the patient will be in the floor for 24 observation and trend troponins which has been negative. 2. Hypertension. Continue monitoring the patient. Echocardiogram will be done. 3. Hyperlipidemia. Restart atorvastatin. 4. Continue on aspirin. Further recommendation per clinical course and for acute kidney injury the patient's creatinine will be trended. For further information clinical course we will continue monitor the patient along with Cardiology. MD LARRY Kasper/MODL /[id number]
[2019-03-20 23:41] VITALS: BP 171/110
[2019-03-21] VITALS (8 sets, daily range): BP systolic 113–150; BP diastolic 68–107
[2019-03-21 06:28] LABS: BASOPHILS % 0.6 % (0.0-1.0); EOSINOPHILS # (AUTO) 0.3 (0.0-0.4); EOSINOPHILS % 3.8 % (0.0-6.0); HEMATOCRIT 41.1 % (38.2-49.6); HEMOGLOBIN 13.5 g/dL (14.0-18.0); LYMPHOCYTES # (AUTO) 2.3 (1.0-3.2); LYMPHOCYTES % 32.8 % (18.0-39.1); MEAN CORPUSCULAR HEMOGLOBIN 30.5 pg (28-32); MEAN CORPUSCULAR HGB CONC 32.8 g/dL (31-35); MEAN CORPUSCULAR VOLUME 92.8 fL (81-99); MONOCYTES # (AUTO) 0.8 (0.2-0.8); MONOCYTES % 11.5 % (4.4-11.3); NEUTROPHILS # (AUTO) 3.5 (2.1-6.9); NEUTROPHILS % 50.9 % (38.7-80.0); PLATELET COUNT 168 x10e3/uL (140-360); RED BLOOD COUNT 4.43 x10e6/uL (4.3-5.7); RED CELL DISTRIBUTION WIDTH 13.5 % (11.7-14.4)
[2019-03-21 06:44] LABS: ANION GAP 12.8 mmol/L (8-16); CALCIUM 9.1 mg/dL (8.4-10.2); CREATININE, SERUM 1.52 mg/dL (0.72-1.25); POTASSIUM 3.8 mmol/L (3.5-5.1)
--- NOTE | 2019-03-21 07:09 | NUR ---
bedside shift report completed with oncoming nurse. patient is resting comfortably in the bed. Bed is in lowest position and call simpson is within reach.
[2019-03-21] MEDS: ASPIRIN 81 MG CHEW TAB PO SCH (08:11)
[2019-03-21] MEDS ORDERED: CARVEDILOL 3.125 MG TAB PO SCH (09:00)
--- NOTE | 2019-03-21 15:20 | NUR ---
Visit made by FREDA Woo. Brigadier provided pastoral presence, hospitality, and supportive listening. Brigadier informed pt/family of the scope of [employer] and availability. ASIA MAN Brigadier Spiritual Care Department O: [phone] Pager: [phone] ([phone] number calling from)
[2019-03-21] MEDS: METOPROLOL SUCCINATE 50 MG TAB XL PO SCH (17:00)
[2019-03-21] MEDS: APIXABAN 5 MG TABLET PO SCH (18:07)
--- NOTE | 2019-03-21 19:13 | NUR ---
bedside shift report is complete. patient is resting comfortably in the bed. bed is in the lowest position and call light is within reach.
[2019-03-21] MEDS: ATORVASTATIN 20 MG TAB PO SCH (20:08)
--- NOTE | 2019-03-21 23:56 | Consultation ---
DATE OF CONSULTATION: 03/21/2019 Cardiology Consultation REASON FOR CONSULTATION: Atrial fibrillation. HISTORY OF PRESENT ILLNESS: This is an 83-year-old man with a history of coronary artery disease, status post coronary artery bypass graft surgery, carotid stenosis, hypertension, hyperlipidemia, who was found to have atrial fibrillation. He reported palpitations with rapid heart rates, moderate intensity, associated with some shortness of breath. No exacerbating or relieving factors. The patient apparently stopped his carvedilol and he states that when he restarted, his palpitations occurred. REVIEW OF SYSTEMS: A 12-point review of system was conducted, is negative except as stated above in the HPI. PAST MEDICAL HISTORY: Carotid artery disease, hypertension, and hyperlipidemia. PAST SURGICAL HISTORY: Coronary artery bypass graft surgery x3, hernia surgery, foot surgery. FAMILY HISTORY: Noncontributory to present illness. SOCIAL HISTORY: No illicit drug, alcohol, or tobacco use. ALLERGIES: PENICILLIN. MEDICATIONS: See medications reconciliation form. PHYSICAL EXAMINATION: VITAL SIGNS: Temperature is 96, heart rate is 126, blood pressure is 113/75, ox saturation is 98% on room air, respirations are 18. GENERAL: Well-appearing, well built, no apparent distress, alert and oriented x3. HEAD: Normocephalic, atraumatic. Eyes, the extraocular muscles are intact. Conjunctivae are clear. NECK: No JVD. No bruits. CARDIOVASCULAR: Irregularly irregular tachycardic, no murmurs. LUNGS: Clear to auscultation bilaterally. No wheezing or rales. ABDOMEN: Soft, nontender, nondistended. EXTREMITIES: No clubbing, cyanosis or edema. VASCULAR: Diminished pulses. SKIN: Warm, dry and intact. NEUROLOGIC: No focal deficits noted. Cranial nerves grossly intact. PSYCHIATRIC: Normal mood and affect. LABORATORY DATA: Reviewed. Hemoglobin is 13, platelets are 168. Creatinine is 1.52, potassium is 3.8, and cardiac enzymes are normal. BNP is 381. A 12-lead electrocardiogram showed atrial fibrillation, right ventricular response with left ventricular hypertrophy and strain pattern. IMPRESSION: 1. Atrial fibrillation. 2. Hypertension. 3. Hyperlipidemia. 4. Coronary artery disease. 5. Peripheral artery disease. RECOMMENDATIONS: We will change carvedilol to Toprol-XL b.i.d. Resume Eliquis for anticoagulation. We will check a 2D echocardiogram. Monitor electrolyte levels. Maintain on telemetry. We will continue to follow along with you. DO MICHAEL Elaine/LUZMA /[id number]
[2019-03-22] VITALS (7 sets, daily range): BP systolic 118–149; BP diastolic 70–95
--- NOTE | 2019-03-22 00:32 | Progress Note ---
DATE: 03/21/2019 SUBJECTIVE: 83-year-old male. The patient comes in yesterday with atrial fibrillation. The patient has been seen by Dr. Tran. The patient was given IV Cardizem. The patient right now started back on metoprolol and the patient is also on Eliquis and atorvastatin. Currently, no chest pain. No shortness of breath. No palpitation. OBJECTIVE: VITAL SIGNS: Temperature 96.2, pulse 88, respirations 16, blood pressure 134/88, and pulse oximetry 98% on room air. HEENT: Normocephalic and atraumatic. Pupils are reactive to light and accommodation. CVS: Irregularly irregular. ABDOMEN: Nontender and nondistended. EXTREMITIES: No clubbing, no cyanosis, and no edema. ASSESSMENT AND PLAN: Mr. Shay with: 1. Atrial fibrillation with rapid ventricular response, doing better with metoprolol. Continue with the same. Continue with beta blockade, statin, and aspirin. 2. Hypertension. 3. Hyperlipidemia. 4. For further information, look in the chart. The patient can be discharged tomorrow unless Cardiology is applying for further testing on Eliquis. MD LARRY Kasper/LUZMA /[id number]
--- NOTE | 2019-03-22 06:24 | NUR ---
Patient is complaining of indigestion. notified. Received new order for 40mg Protonix one time dose and also one time dose of Maalox.
--- NOTE | 2019-03-22 06:45 | NUR ---
patient is resting comfortably in bed. bed is in lowest position and call light is within reach.
--- NOTE | 2019-03-22 07:25 | NUR ---
PATIENT IN BED RESTING WITH NO S/S OF DISTRESS. BED IN LOWER POSITION, CALL LIGHT AT REACH.
[2019-03-22] MEDS ORDERED: MAGNESIUM/ALUMINUM/SIMETHICONE 30 ML UDC PO NR (08:15)
[2019-03-22] MEDS ORDERED: PANTOPRAZOLE SOD 40 MG TABEC PO NR (08:15)
[2019-03-22] MEDS: APIXABAN 5 MG TABLET PO SCH ×2 (09:11→17:13)
[2019-03-22] MEDS: ASPIRIN 81 MG CHEW TAB PO SCH (09:11)
[2019-03-22] MEDS: METOPROLOL SUCCINATE 50 MG TAB XL PO SCH ×2 (09:12→17:14)
--- NOTE | 2019-03-22 11:24 | NUR ---
PATIENT ASSISTED TO THE RESTROOM AND BACK TO BED, TELEMETRY LEAD CHANGED. BED IN LOWER POSITION, CALL LIGHT AT REACH.
--- NOTE | 2019-03-22 12:29 | Progress Note ---
DATE: 03/22/2019 SUBJECTIVE: The patient came in with atrial fibrillation with rapid ventricular response. The patient is currently doing better. Did have some episodes of indigestion in the morning. Currently, no chest pain. No shortness of breath. No palpitation. PHYSICAL EXAMINATION: VITAL SIGNS: Temperature is 96.4, pulse of 97, respirations of 18, and blood pressure is 122/80. HEENT: Normocephalic and atraumatic. Pupils are reactive to light and accommodation. CVS: S1 and S2 normal, irregular in rhythm. ABDOMEN: Nontender, nondistended. EXTREMITIES: No clubbing. No cyanosis and/or no edema. LABORATORY VALUES: None done today. ASSESSMENT: Mr. Gladys Shay with: 1. Atrial fibrillation with rapid ventricular response, better and currently with low heart rate. 2. Hypertension. 3. Coronary artery disease. 4. Peripheral artery disease. 5. Hyperlipidemia. 6. Anxiety. PLAN: The patient has been switched to Toprol-XL. Continue with Eliquis for anticoagulation. A 2D echocardiogram checked. The patient is on Telemetry, can be discharged today if okay with Cardiology. Further recommendation per clinical course. We will continue to monitor the patient until discharge. The patient will be followed up with his primary care physician, Dr. Joe Olmedo. For further information, look in the chart. For medicines at the patient's discharge, look in medical reconciliation sheet. MD LARRY Kasper/MODL /[id number]
--- NOTE | 2019-03-22 17:30 | NUR ---
CALL PLACED TO SUPPLIER QUALITY MANAGER, MESSAGE LEFT. AWAITING CALL BACK.
--- NOTE | 2019-03-22 19:30 | NUR ---
report received from day nurse. bedside shift report is complete. patient is resting in bed. bed is in lowest position and call light is within reach. will continue to monitor patient.
[2019-03-22] MEDS: ATORVASTATIN 20 MG TAB PO SCH (20:26)
[2019-03-23 01:08] VITALS: BP 120/97
[2019-03-23 05:03] VITALS: BP 121/80
--- NOTE | 2019-03-23 06:32 | NUR ---
patient is resting in bed. bed is in lowest position and call simpson is within reach.
--- NOTE | 2019-03-23 07:17 | NUR ---
PATIENT IN BED RESTING WITH EYES CLOSED, NO RESPIRATORY DISTRESS OBSERVED. BED IN LOWER POSITION, CALL LIGHT AT REACH.
[2019-03-23 08:08] VITALS: BP 97/69
[2019-03-23 08:32] VITALS: BP 97/69
[2019-03-23] MEDS: ASPIRIN 81 MG CHEW TAB PO SCH (08:53)
[2019-03-23] MEDS: APIXABAN 5 MG TABLET PO SCH (08:53)
[2019-03-23] MEDS: METOPROLOL SUCCINATE 50 MG TAB XL PO SCH (08:53)
--- NOTE | 2019-03-23 09:01 | NUR ---
MD IN TO SEE PATIENT. ORDER RECEIVED TO DISCHARGE PATIENT.
--- NOTE | 2019-03-23 09:40 | NUR ---
PATIENT DISCHARGED HOME. DISCHARGE INSTRUCTIONS, PRESCRIPTIONS, AND FOLLOW UP GIVEN TO PATIENT, HE VERBALIZED UNDERSTANDING. IV TO LEFT AC REMOVED WITH TIP INTACT. ALL PERSONAL ITEMS TAKEN WITH PATIENT. REFUSED WHEEL CHAIR, BUT WAS ACCOMPANIED BY A HOSPITAL STAFF TO FRONT LOBBY IN STABLE CONDITION.
--- NOTE | 2019-03-23 11:33 | Progress Note ---
DATE: 03/23/2019 SUBJECTIVE: The patient is an 83-year-old male, who came in with acute atrial fibrillation with RVR. The patient is currently doing better. Rate control has been achieved. Started on statin, started on apixaban. No complaints and no chest pain and no shortness of breath. No palpitation. MEDICATIONS: Currently, 1. Eliquis. 2. Aspirin. 3. Atorvastatin. 4. Claritin. 5. Metoprolol. 6. Pantoprazole. OBJECTIVE: VITAL SIGNS: Temperature is 95.6, pulse of 83, respirations of 16, blood pressure is 97/69 with a MAP of 78, and pulse oximetry of 98%. Retake a blood pressure is 117/81. HEENT: Normocephalic and atraumatic. Pupils are reactive to light and accommodation. CVS: S1 and S2 normal, regular rhythm. ABDOMEN: Nontender, nondistended. EXTREMITIES: No clubbing, no cyanosis, no edema. LABORATORY VALUES: None done today. Chemistries from 7th shows creatinine of 1.52. ASSESSMENT AND PLAN: Mr. Gladys Shay with, 1. Atrial fibrillation with rapid ventricular response, resolved. 2. Acute kidney injury. Check BMP today. 3. Hypertension. Continue metoprolol. 4. History of coronary artery disease, status post coronary artery bypass graft. Continue monitoring the patient's cardiac functions, to be seen by Dr. Hernandez in about 2 days. Possible need for echocardiogram and also stress test as an outpatient dictated to the patient. The patient will follow up with Dr. Hernandez in 2 days. Discharge planning depending on the creatinine function today. MD LARRY Kasper/MODL /[id number]
== END 2019-03-23 09:29 | disposition home or self-care (01) ==
LOC: ER 13:54 → ERHOLD 15:30 → MED/SURG3 17:48
PROVIDERS: ADMIT Family Medicine; ATTEND Family Medicine
DX: I48.91 Unspecified atrial fibrillation (principal); N17.9 Acute kidney failure, unspecified; I73.9 Peripheral vascular disease, unspecified; F41.9 Anxiety disorder, unspecified; J45.909 Unspecified asthma, uncomplicated; I25.10 Atherosclerotic heart disease of native coronary artery without angina pectoris; E78.5 Hyperlipidemia, unspecified; I10 Essential (primary) hypertension; E03.9 Hypothyroidism, unspecified; Z95.1 Presence of aortocoronary bypass graft
CPT/HCPCS: 36415 ×2; 71045; 80048; 80053; 81001; 82550; 82553; 83880; 84443; 84484; 85025 ×2; 85610; 93005; 93306; 99284; G0378 ×4; S0164

== ENCOUNTER 2020-11-15 16:05 | Emergency (ER) | payer BC, MEDICARE ==
[~2020-11-15] VITALS: Ht 162.6 cm; Wt 56.7 kg
[~2020-11-15 16:05] MED LIST: ASPIR 8181 MG PO; COREG3.125 MG PO; LIPITOR40 MG PO; LORATADINE10 MG PO; TESSALON PERLE100 MG PO
[2020-11-15] MEDS ORDERED: ASPIRIN 81 MG CHEW TAB PO ONE (16:30)
[2020-11-15 16:53] LABS: BASOPHILS % 0.4 % (0.0-1.0); EOSINOPHILS # (AUTO) 0.3 (0.0-0.4); EOSINOPHILS % 4.8 % (0.0-6.0); HEMATOCRIT 34.6 % (38.2-49.6); LYMPHOCYTES # (AUTO) 1.7 (1.0-3.2); LYMPHOCYTES % 24.4 % (18.0-39.1); MEAN CORPUSCULAR HEMOGLOBIN 30.1 pg (28-32); MEAN CORPUSCULAR HGB CONC 31.8 g/dL (31-35); MEAN CORPUSCULAR VOLUME 94.8 fL (81-99); MONOCYTES # (AUTO) 0.7 (0.2-0.8); MONOCYTES % 10.2 % (4.4-11.3); NEUTROPHILS # (AUTO) 4.2 (2.1-6.9); NEUTROPHILS % 59.8 % (38.7-80.0); PLATELET COUNT 198 x10e3/uL (140-360); RED BLOOD COUNT 3.65 x10e6/uL (4.3-5.7); RED CELL DISTRIBUTION WIDTH 14.8 % (11.7-14.4)
[2020-11-15 17:15] LABS: ALBUMIN 3.8 g/dL (3.5-5.0); ALBUMIN/GLOBULIN RATIO 1.1 (0.8-2.0); ANION GAP 12.6 mmol/L (8-16); CALCIUM 9.1 mg/dL (8.4-10.2); CREATININE, SERUM 1.65 mg/dL (0.72-1.25); POTASSIUM 4.6 mmol/L (3.5-5.1)
[2020-11-15 17:21] LABS: CREATINE KINASE MB 5.8 ng/mL (0-5.0)
[2020-11-15] MEDS ORDERED: FUROSEMIDE INJ 10 MG/ML 2 ML VIAL IV ONE (18:15)
[2020-11-15] MEDS ORDERED: FUROSEMIDE INJ 10 MG/ML 4 ML VIAL IV ONE (18:15)
== END 2020-11-15 20:59 | disposition home or self-care (01) ==
LOC: ER 16:33
DX: J81.1 Chronic pulmonary edema (principal); R94.31 Abnormal electrocardiogram [ECG] [EKG]; E78.5 Hyperlipidemia, unspecified; Z20.822 Contact with and (suspected) exposure to COVID-19; I48.91 Unspecified atrial fibrillation; Z95.1 Presence of aortocoronary bypass graft
CPT/HCPCS: 36415; 71045; 80053; 82550; 82553; 83880; 84484; 85025; 87040; 93005; 99284; J1940; U0002

== ENCOUNTER 2020-11-27 11:34 | Inpatient (IN) | payer MEDICARE, BC ==
[~2020-11-27] VITALS: Ht 162.6 cm; Wt 55.3 kg
[2020-11-27] MEDS ORDERED: ACETAMINOPHEN 325 MG TAB PO ONE (12:00)
[2020-11-27] MEDS ORDERED: NITROGLYCERIN 2% OINT 1 GM PKT TOP ONE (12:00)
[2020-11-27] MEDS ORDERED: ASPIRIN 81 MG CHEW TAB PO ONE (12:00)
[2020-11-27] MEDS ORDERED: ASPIRIN 325 MG TAB ONE (12:01)
[2020-11-27] MEDS ORDERED: NITROGLYCERIN 2% OINT 1 GM PKT ONE (12:01)
[2020-11-27] MEDS ORDERED: ACETAMINOPHEN 325 MG TAB ONE (12:01)
[2020-11-27] MEDS ORDERED: ONDANSETRON HCL INJ 2MG/ML 2ML 2 MG/ML VIAL IV PRN (12:30)
[2020-11-27] MEDS ORDERED: SODIUM CHLORIDE FLUSH 10 ML SYR INJ PRN (12:30)
[2020-11-27] MEDS ORDERED: ENALAPRILAT IV INJ 1.25 MG/ML VIAL IV PRN (12:30)
[2020-11-27] MEDS ORDERED: FUROSEMIDE INJ 10 MG/ML 4 ML VIAL IV ONE (12:30)
[2020-11-27] MEDS ORDERED: DIPHENHYDRAMINE HCL INJ 50 MG/ML VIAL IV PRN (12:30)
[2020-11-27] MEDS ORDERED: FUROSEMIDE INJ 10 MG/ML 4 ML VIAL ONE (12:31)
[2020-11-27 14:40] VITALS: BP 182/73
[2020-11-27 15:56] VITALS: BP 165/71
[2020-11-27] MEDS ORDERED: METOPROLOL TART50 MG PO (16:20)
[2020-11-27] MEDS ORDERED: MONTELUKAST SOD10 MG PO (16:20)
[2020-11-27] MEDS ORDERED: ELIQUIS2.5 MG PO (16:20)
[2020-11-27] MEDS ORDERED: FUROSEMIDE40 MG PO (16:20)
[2020-11-27 16:31] VITALS: BP 165/71
[2020-11-27] MEDS: FUROSEMIDE INJ 10 MG/ML 4 ML VIAL IV SCH (16:50)
[2020-11-27] MEDS: FAMOTIDINE 20 MG TAB PO SCH (16:50)
[2020-11-27] MEDS ORDERED: ENOXAPARIN SOD INJ 40 MG/0.4 ML SYR SC SCH (17:00)
[2020-11-27 17:01] LABS: CREATINE KINASE MB 1.6 ng/mL (0-5.0)
[2020-11-27 18:19] VITALS: BP 125/61
[2020-11-27] MEDS: NITROGLYCERIN 2% OINT 1 GM PKT TOP SCH (18:26)
[2020-11-27 20:00] VITALS: BP 151/67
[2020-11-27 21:00] VITALS: BP 151/67
[2020-11-28] VITALS (8 sets, daily range): BP systolic 120–159; BP diastolic 54–67
[2020-11-28] MEDS: NITROGLYCERIN 2% OINT 1 GM PKT TOP SCH ×4 (06:00→16:35)
[2020-11-28] MEDS: FUROSEMIDE INJ 10 MG/ML 4 ML VIAL IV SCH ×2 (08:01→16:34)
[2020-11-28] MEDS: SPIRONOLACTONE 25 MG TAB PO SCH (08:01)
[2020-11-28] MEDS: LOSARTAN POTASSIUM 25 MG TAB PO SCH (08:01)
[2020-11-28] MEDS: FAMOTIDINE 20 MG TAB PO SCH ×2 (08:01→16:34)
[2020-11-28] MEDS: MONTELUKAST SODIUM 10 MG TAB PO SCH (08:01)
[2020-11-28 09:47] LABS: CREATINE KINASE MB 1.8 ng/mL (0-5.0)
[2020-11-28] MEDS: BISACODYL 5 MG TAB EC PO PRN (15:39)
[2020-11-28] MEDS: APIXAB 2.5 MG TABLET PO SCH (17:15)
[2020-11-28] MEDS: ATORVASTATIN 40 MG TAB PO SCH (20:26)
[2020-11-28] MEDS: ACETAMINOPHEN 325 MG TAB PO PRN (22:45)
[2020-11-29] VITALS (7 sets, daily range): BP systolic 120–138; BP diastolic 52–61
[2020-11-29] MEDS: NITROGLYCERIN 2% OINT 1 GM PKT TOP SCH ×4 (05:30→18:00)
[2020-11-29] MEDS ORDERED: ONDANSETRON HCL 4 MG ORAL DISINTEGRATING TAB PO PRN (08:00)
[2020-11-29] MEDS: APIXAB 2.5 MG TABLET PO SCH ×2 (09:00→16:03)
[2020-11-29] MEDS: LOSARTAN POTASSIUM 25 MG TAB PO SCH (09:14)
[2020-11-29] MEDS: FAMOTIDINE 20 MG TAB PO SCH ×2 (09:14→16:03)
[2020-11-29] MEDS: ASPIRIN 81 MG CHEW TAB PO SCH (09:14)
[2020-11-29 09:18] LABS: BASOPHILS % 0.6 % (0.0-1.0); EOSINOPHILS # (AUTO) 0.5 (0.0-0.4); EOSINOPHILS % 7.9 % (0.0-6.0); HEMATOCRIT 33.6 % (38.2-49.6); HEMOGLOBIN 10.9 g/dL (14.0-18.0); LYMPHOCYTES # (AUTO) 2.1 (1.0-3.2); LYMPHOCYTES % 30.2 % (18.0-39.1); MEAN CORPUSCULAR HEMOGLOBIN 30.3 pg (28-32); MEAN CORPUSCULAR HGB CONC 32.4 g/dL (31-35); MEAN CORPUSCULAR VOLUME 93.3 fL (81-99); MONOCYTES # (AUTO) 0.8 (0.2-0.8); MONOCYTES % 11.7 % (4.4-11.3); NEUTROPHILS # (AUTO) 3.4 (2.1-6.9); NEUTROPHILS % 49.3 % (38.7-80.0); PLATELET COUNT 201 x10e3/uL (140-360); RED CELL DISTRIBUTION WIDTH 14.6 % (11.7-14.4)
[2020-11-29 09:37] LABS: INR 1.08; PROTHROMBIN TIME 14.4 seconds (11.9-14.5)
[2020-11-29 09:38] LABS: PARTIAL THROMBOPLASTIN TIME 33.7 seconds (23.8-35.5)
[2020-11-29 09:49] LABS: ALBUMIN 3.5 g/dL (3.5-5.0); ANION GAP 16.4 mmol/L (8-16); CALCIUM 9.3 mg/dL (8.4-10.2); CREATININE, SERUM 1.9 mg/dL (0.72-1.25); POTASSIUM 3.4 mmol/L (3.5-5.1)
[2020-11-29] MEDS ORDERED: REGADENOSON 0.4 MG/5 ML SYR IV ONE (09:55)
[2020-11-29] MEDS: MONTELUKAST SODIUM 10 MG TAB PO SCH (12:14)
[2020-11-29] MEDS: FUROSEMIDE INJ 10 MG/ML 4 ML VIAL IV SCH ×2 (12:14→16:03)
[2020-11-29] MEDS: SPIRONOLACTONE 25 MG TAB PO SCH (12:14)
[2020-11-29] MEDS ORDERED: AMINOPHYLLINE INJ 25 MG/ML 20 ML VIAL ONE (13:15)
[2020-11-29] MEDS ORDERED: LORATADINE 10 MG TAB PO PRN (15:00)
[2020-11-29] MEDS: ATORVASTATIN 40 MG TAB PO SCH (20:14)
[2020-11-29] MEDS: ACETAMINOPHEN 325 MG TAB PO PRN (20:16)
[2020-11-29] MEDS ORDERED: ALBUTEROL/IPRATROPIUM 3 ML NEB NEB PRN (20:30)
[2020-11-30] VITALS (8 sets, daily range): BP systolic 108–127; BP diastolic 54–73
[2020-11-30] MEDS: FAMOTIDINE 20 MG TAB PO SCH ×2 (08:16→15:47)
[2020-11-30] MEDS: FUROSEMIDE INJ 10 MG/ML 4 ML VIAL IV SCH ×2 (08:16→15:47)
[2020-11-30] MEDS: ASPIRIN 81 MG CHEW TAB PO SCH (08:16)
[2020-11-30] MEDS: SPIRONOLACTONE 25 MG TAB PO SCH (08:16)
[2020-11-30] MEDS: MONTELUKAST SODIUM 10 MG TAB PO SCH (08:17)
[2020-11-30] MEDS: LOSARTAN POTASSIUM 25 MG TAB PO SCH (08:17)
[2020-11-30] MEDS: APIXAB 2.5 MG TABLET PO SCH ×2 (08:17→15:47)
[2020-11-30] MEDS: ACETAMINOPHEN 325 MG TAB PO PRN (20:36)
[2020-11-30] MEDS: ATORVASTATIN 40 MG TAB PO SCH (20:36)
[2020-12-01] VITALS: BP 115/61
[2020-12-01 04:00] VITALS: BP 150/68
[2020-12-01 05:21] LABS: BASOPHILS % 0.6 % (0.0-1.0); EOSINOPHILS # (AUTO) 0.9 (0.0-0.4); HEMATOCRIT 34.5 % (38.2-49.6); HEMOGLOBIN 11.1 g/dL (14.0-18.0); LYMPHOCYTES # (AUTO) 2.4 (1.0-3.2); LYMPHOCYTES % 35.2 % (18.0-39.1); MEAN CORPUSCULAR HEMOGLOBIN 29.8 pg (28-32); MEAN CORPUSCULAR HGB CONC 32.2 g/dL (31-35); MEAN CORPUSCULAR VOLUME 92.5 fL (81-99); MONOCYTES # (AUTO) 0.8 (0.2-0.8); MONOCYTES % 12.4 % (4.4-11.3); NEUTROPHILS # (AUTO) 2.6 (2.1-6.9); NEUTROPHILS % 38.5 % (38.7-80.0); PLATELET COUNT 233 x10e3/uL (140-360); RED BLOOD COUNT 3.73 x10e6/uL (4.3-5.7); RED CELL DISTRIBUTION WIDTH 14.6 % (11.7-14.4)
[2020-12-01 05:50] LABS: ANION GAP 12.8 mmol/L (8-16); CALCIUM 9.4 mg/dL (8.4-10.2); CREATININE, SERUM 2.09 mg/dL (0.72-1.25); POTASSIUM 3.8 mmol/L (3.5-5.1)
[2020-12-01] MEDS: FAMOTIDINE 20 MG TAB PO SCH (07:44)
[2020-12-01 07:48] VITALS: BP 104/56
[2020-12-01] MEDS: ASPIRIN 81 MG CHEW TAB PO SCH (08:24)
[2020-12-01] MEDS: APIXAB 2.5 MG TABLET PO SCH (08:24)
[2020-12-01] MEDS: FUROSEMIDE INJ 10 MG/ML 4 ML VIAL IV SCH (08:24)
[2020-12-01] MEDS: LOSARTAN POTASSIUM 25 MG TAB PO SCH (08:24)
[2020-12-01] MEDS: SPIRONOLACTONE 25 MG TAB PO SCH (08:24)
[2020-12-01] MEDS: MONTELUKAST SODIUM 10 MG TAB PO SCH (08:24)
[2020-12-01] MEDS: BISACODYL 5 MG TAB EC PO PRN (09:21)
[2020-12-01 11:09] VITALS: BP 110/68
[2020-12-01 18:40] VITALS: BP 156/92
== END 2020-12-01 15:05 | disposition home or self-care (01) | DRG 310 ==
LOC: FSED 11:42 → ERHOLD 12:27 → MED/SURG 14:30 → OBSVTOIN 11-29 08:28
PROVIDERS: ADMIT Family Medicine; ATTEND Family Medicine
DX: I44.0 Atrioventricular block, first degree (principal); R00.1 Bradycardia, unspecified; R07.2 Precordial pain; I25.10 Atherosclerotic heart disease of native coronary artery without angina pectoris; Z95.1 Presence of aortocoronary bypass graft; J45.909 Unspecified asthma, uncomplicated; I48.91 Unspecified atrial fibrillation; E03.9 Hypothyroidism, unspecified; E78.5 Hyperlipidemia, unspecified; Z88.0 Allergy status to penicillin; Z91.018 Allergy to other foods; Z82.49 Family history of ischemic heart disease and other diseases of the circulatory system; I10 Essential (primary) hypertension; Z20.822 Contact with and (suspected) exposure to COVID-19
CPT/HCPCS: 36415; 71046; 78452; 80048; 80053; 82550; 82553; 84484; 85025; 85610; 85730; 93005; 93017; 93306; 94640; 99284; A9502; G0378; J0280; J1650; J1940; U0002

== ENCOUNTER 2021-05-27 12:17 | Emergency (ER) | payer MEDICARE, BC ==
[~2021-05-27] VITALS: Ht 162.6 cm; Wt 50.3 kg
[~2021-05-27 12:17] MED LIST changes: +BUDESONIDE-FO10.2 G1; +ELIQUIS2.5 MG PO; +FUROSEMIDE40 MG PO; +METHOCARBAMOL750 MG PO; +METOPROLOL SUCC50 MG PO; +METOPROLOL TART50 MG PO; +MONTELUKAST SOD10 MG PO
[2021-05-27] MEDS ORDERED: ANAPROX DS550 MG PO (13:26)
[2021-05-27] MEDS ORDERED: METHOCARBAMOL750 MG PO (13:26)
== END 2021-05-27 13:40 | disposition home or self-care (01) ==
LOC: ER 12:21
DX: M25.572 Pain in left ankle and joints of left foot (principal); M54.2 Cervicalgia; I10 Essential (primary) hypertension; J45.909 Unspecified asthma, uncomplicated; E78.5 Hyperlipidemia, unspecified; E03.9 Hypothyroidism, unspecified; Z88.0 Allergy status to penicillin; Z91.018 Allergy to other foods; Z79.02 Long term (current) use of antithrombotics/antiplatelets; Z79.82 Long term (current) use of aspirin; Z79.899 Other long term (current) drug therapy; Z95.1 Presence of aortocoronary bypass graft; Z95.810 Presence of automatic (implantable) cardiac defibrillator
CPT/HCPCS: 99283

== ENCOUNTER 2021-10-06 13:35 | Emergency (ER) | payer BC, MEDICARE ==
[~2021-10-06] VITALS: Ht 162.6 cm; Wt 50.3 kg
[~2021-10-06 13:35] MED LIST changes: +ANAPROX DS550 MG PO
== END 2021-10-06 14:48 | disposition home or self-care (01) ==
LOC: ER 13:40
DX: I12.9 Hypertensive chronic kidney disease with stage 1 through stage 4 chronic kidney disease, or unspecified chronic kidney disease (principal); N18.9 Chronic kidney disease, unspecified; E78.5 Hyperlipidemia, unspecified; E03.9 Hypothyroidism, unspecified; Z95.810 Presence of automatic (implantable) cardiac defibrillator; Z95.1 Presence of aortocoronary bypass graft
CPT/HCPCS: 99282

== ENCOUNTER 2021-12-08 09:05 | Emergency (ER) | payer BC, MEDICARE ==
[~2021-12-08] VITALS: Ht 170.2 cm; Wt 59.0 kg
[2021-12-08] MEDS ORDERED: ACETAMINOPHEN-1 EAC4 PO (11:24)
[2021-12-08] MEDS ORDERED: CLEOCIN HCL300 MG PO (11:45)
== END 2021-12-08 14:53 | disposition home or self-care (01) ==
LOC: ER 09:30
DX: M79.671 Pain in right foot (principal); M79.89 Other specified soft tissue disorders; I10 Essential (primary) hypertension; E78.5 Hyperlipidemia, unspecified; J45.909 Unspecified asthma, uncomplicated; Z95.810 Presence of automatic (implantable) cardiac defibrillator; Z95.1 Presence of aortocoronary bypass graft
CPT/HCPCS: 93926; 99283

== ENCOUNTER 2021-12-31 10:10 | Emergency (ER) | payer BC, MEDICARE ==
[~2021-12-31] VITALS: Ht 170.2 cm; Wt 59.0 kg
[~2021-12-31 10:10] MED LIST changes: +ACETAMINOPHEN-1 EAC4 PO; +CLEOCIN HCL300 MG PO
[2021-12-31] MEDS ORDERED: LIDOCAINE1 EACH EXT (10:35)
[2021-12-31] MEDS: KETOROLAC TROMETHAMINE 30 MG/ML VIAL IM ONE (10:54)
[2021-12-31] MEDS: DEXAMETHASONE 4 MG TAB PO ONE (10:54)
[2021-12-31] MEDS: ACETAMINOPHEN 325 MG TAB PO ONE (10:54)
[2021-12-31] MEDS: LIDOCAINE 4% PATCH TP STA (10:54)
== END 2021-12-31 11:30 | disposition home or self-care (01) ==
LOC: ER 10:13
DX: M54.50 Low back pain, unspecified (principal); I10 Essential (primary) hypertension; E78.5 Hyperlipidemia, unspecified; E03.9 Hypothyroidism, unspecified; J45.909 Unspecified asthma, uncomplicated; Z95.1 Presence of aortocoronary bypass graft; Z95.810 Presence of automatic (implantable) cardiac defibrillator
CPT/HCPCS: 99283; J1885; J8540

== ENCOUNTER 2024-06-29 09:14 | Emergency (ER) | payer BC, MEDICARE ==
[~2024-06-29] VITALS: Ht 162.6 cm; Wt 54.4 kg
[~2024-06-29 09:14] MED LIST changes: +LIDOCAINE1 EACH EXT
[2024-06-29 09:19] VITALS: TEMP 97.7
[2024-06-29 09:45] LABS: BASOPHILS % 0.3 % (0.0-1.0); EOSINOPHILS # (AUTO) 0.1 (0.0-0.4); EOSINOPHILS % 0.9 % (0.0-6.0); HEMATOCRIT 31.7 % (38.2-49.6); HEMOGLOBIN 10.2 g/dL (14.0-18.0); LYMPHOCYTES % 14.8 % (18.0-39.1); MEAN CORPUSCULAR HEMOGLOBIN 31.3 pg (28-32); MEAN CORPUSCULAR HGB CONC 32.2 g/dL (31-35); MEAN CORPUSCULAR VOLUME 97.2 fL (81-99); MONOCYTES # (AUTO) 0.8 (0.2-0.8); MONOCYTES % 10.9 % (4.4-11.3); NEUTROPHILS % 72.5 % (38.7-80.0); PLATELET COUNT 153 x10e3/uL (140-360); RED BLOOD COUNT 3.26 x10e6/uL (4.3-5.7); RED CELL DISTRIBUTION WIDTH 14.6 % (11.7-14.4); WHITE BLOOD COUNT 6.88 x10e3/uL (4.8-10.8)
[2024-06-29] MEDS: CYCLOBENZAPRINE HCL 10 MG TAB PO ONE (10:07)
[2024-06-29] MEDS: KETOROLAC TROMETHAMINE 30 MG/ML VIAL IV STA (10:07)
[2024-06-29] MEDS: SODIUM CHLORIDE 0.9% 1000ML 1,000 ML IV ONE ×2 (10:08→14:23)
[2024-06-29 10:15] LABS: CORONAVIRUS COVID-19 AG NEGATIVE (NEGATIVE); INFLUENZA A AG NEGATIVE (NEGATIVE); INFLUENZA B AG NEGATIVE (NEGATIVE)
[2024-06-29 10:23] LABS: ALBUMIN 3.6 g/dL (3.5-5.0); ALBUMIN/GLOBULIN RATIO 0.9 (0.8-2.0); ANION GAP 16.3 mmol/L (8-16); BILIRUBIN,TOTAL 1.7 mg/dL (0.2-1.2); CALCIUM 9.2 mg/dL (8.4-10.2); CREATININE, SERUM 2.43 mg/dL (0.72-1.25); POTASSIUM 4.3 mmol/L (3.5-5.1); TOTAL PROTEIN 7.8 g/dL (6.5-8.1)
[2024-06-29 12:02] VITALS: PULSE 87; RESP 18; O2SAT 98
[2024-06-29 15:57] LABS: APPEARANCE,CSF CLEAR (CLEAR); COLOR,CSF COLORLESS (COLORLESS); TUBE NUMBER 3
[2024-06-29 16:35] LABS: GLUCOSE,CSF 82 MG/DL (40-70)
[2024-06-29 16:36] LABS: TOTAL PROTEIN,CSF < 8.0 mg/dL (15-40)
[2024-06-29 18:03] LABS: RED BLOOD CELL,CSF 1 cells/uL (0-10); WHITE BLOOD CELL,CSF 1 cells/uL (0-5)
== END 2024-06-29 17:18 | disposition home or self-care (01) ==
LOC: ER 09:19
DX: M54.2 Cervicalgia (principal); R09.81 Nasal congestion; J02.9 Acute pharyngitis, unspecified; I10 Essential (primary) hypertension; I50.9 Heart failure, unspecified; E78.5 Hyperlipidemia, unspecified; I48.91 Unspecified atrial fibrillation; E03.9 Hypothyroidism, unspecified; J45.909 Unspecified asthma, uncomplicated; Z11.52 Encounter for screening for COVID-19; Z95.810 Presence of automatic (implantable) cardiac defibrillator; Z95.1 Presence of aortocoronary bypass graft
CPT/HCPCS: 36415; 62272; 70450; 72125; 80053; 82945; 84157; 85025; 87070; 87205; 87428; 89051; 99284; J1885; J7030

== ENCOUNTER 2024-09-11 22:37 | Inpatient (IN) | payer MEDICARE, BC ==
[~2024-09-11] VITALS: Ht 162.6 cm; Wt 53.5 kg
[2024-09-12] VITALS (12 sets, daily range): BP systolic 97–157; BP diastolic 68–90; PULSE 58–87; RESP 16–18; TEMP 97.4–97.9; O2SAT 93–100
[2024-09-12] MEDS: KETOROLAC TROMETHAMINE 60 MG/2 ML VIAL IM ONE (00:09)
[2024-09-12] MEDS: Morphine 4mg INJECTION 4 MG/ML INJ IV ONE (03:45)
[2024-09-12] MEDS ORDERED: ONDANSETRON HCL INJ 2MG/ML 2ML 2 MG/ML VIAL IV PRN (04:00)
[2024-09-12] MEDS ORDERED: Morphine 4mg INJECTION 4 MG/ML INJ IV PRN (04:00)
[2024-09-12] MEDS ORDERED: ENTRESTO 24 MG1 EACH PO (05:20)
[2024-09-12] MEDS ORDERED: CLOPIDOGREL75 MG PO (05:20)
[2024-09-12] MEDS ORDERED: LEVALBUTEROL TA15 GM INH (05:31)
[2024-09-12] MEDS: Morphine 2mg Syringe 2 MG/ML SYR IV PRN (08:38)
[2024-09-12] MEDS ORDERED: HYDRALAZINE HCL 25 MG TAB PO PRN (10:30)
[2024-09-12] MEDS ORDERED: LORATADINE 10 MG TAB PO PRN (10:30)
[2024-09-12] MEDS: LEVALBUTEROL HCL SOLN NEBU 0.63 MG/3 ML NEB IH SCH (11:08)
[2024-09-12] MEDS: BENZONATATE 100 MG CAP PO SCH (12:14)
[2024-09-12] MEDS: DOCUSATE SODIUM 100 MG CAP PO SCH (12:15)
[2024-09-12] MEDS: APIXABAN 2.5 MG TABLET PO SCH (16:19)
[2024-09-12] MEDS: FUROSEMIDE 20 MG TAB PO SCH (16:20)
[2024-09-12] MEDS: ATORVASTATIN 40 MG TAB PO SCH (21:22)
[2024-09-12] MEDS: ONDANSETRON HCL 4 MG ORAL DISINTEGRATING TAB PO PRN (21:23)
[2024-09-12] MEDS: METOPROLOL SUCCINATE 50 MG TAB XL PO SCH (21:23)
[2024-09-13] VITALS (9 sets, daily range): BP systolic 96–102; BP diastolic 61–73; PULSE 75–118; RESP 16–18; TEMP 97.3–98.1; O2SAT 92–99
[2024-09-13] MEDS: HYDROCODONE/APAP 5MG-325MG TAB PO PRN (03:38)
[2024-09-13 06:39] LABS: BASOPHILS % 0.5 % (0.0-1.0); EOSINOPHILS % 8.6 % (0.0-6.0); INR 1.19; LYMPHOCYTES % 14.6 % (18.0-39.1); MONOCYTES % 10.2 % (4.4-11.3); NEUTROPHILS % 65.9 % (38.7-80.0); RED CELL DISTRIBUTION WIDTH 14.6 % (11.7-14.4)
[2024-09-13 06:58] LABS: EST GLOMERULAR FILTRATION RATE 18.0 ML/MIN (>=60)
[2024-09-13] MEDS: CLOPIDOGREL BISULFATE 75 MG TAB PO SCH (08:12)
[2024-09-13] MEDS: SACUBITRIL/VALSARTAN 24MG/26MG 1 EA TAB PO SCH (08:14)
== END 2024-09-13 15:44 | disposition home or self-care (01) | DRG 563 ==
LOC: FSED 23:28 → ERHOLD 09-12 04:11 → MED/SURG 09-12 05:03 → MED/SURG3 09-12 18:44
PROVIDERS: ADMIT Internal Medicine; ATTEND Family Medicine
PROC: 2W3AXYZ Immobilization of Right Upper Arm using Other Device (ICD-10-PCS; principal; 2024-09-12)
DX: S42.201A Unspecified fracture of upper end of right humerus, initial encounter for closed fracture (principal); I11.0 Hypertensive heart disease with heart failure; I50.42 Chronic combined systolic (congestive) and diastolic (congestive) heart failure; S09.90XA Unspecified injury of head, initial encounter; E78.00 Pure hypercholesterolemia, unspecified; I48.91 Unspecified atrial fibrillation; E03.9 Hypothyroidism, unspecified; M54.2 Cervicalgia; I25.10 Atherosclerotic heart disease of native coronary artery without angina pectoris; J45.909 Unspecified asthma, uncomplicated; W18.09XA Striking against other object with subsequent fall, initial encounter; Y92.009 Unspecified place in unspecified non-institutional (private) residence as the place of occurrence of the external cause; Z79.02 Long term (current) use of antithrombotics/antiplatelets; Z79.01 Long term (current) use of anticoagulants; Z79.82 Long term (current) use of aspirin; I25.2 Old myocardial infarction; Z95.1 Presence of aortocoronary bypass graft; Z95.810 Presence of automatic (implantable) cardiac defibrillator; Z88.0 Allergy status to penicillin; Z91.018 Allergy to other foods
CPT/HCPCS: 36415; 70450; 71046; 72125; 80053; 85025; 85610; 85730; 94640; 94799; 96372; 96374; 99284; J1885; J2270; Q0162

== ENCOUNTER 2024-10-10 14:17 | Emergency (ER) | payer MEDICARE, BC ==
[~2024-10-10] VITALS: Ht 162.6 cm; Wt 51.0 kg
[~2024-10-10 14:17] MED LIST changes: +CLOPIDOGREL75 MG PO; +ENTRESTO 24 MG1 EACH PO; +LEVALBUTEROL TA15 GM INH
[2024-10-10 15:03] VITALS: PULSE 72; RESP 18
[2024-10-10] MEDS: PREDNISONE 20 MG TAB PO STA (15:03)
[2024-10-10] MEDS: ALBUTEROL/IPRATROPIUM 3 ML NEB NEB STA (15:03)
[2024-10-10] MEDS ORDERED: LEVOTHYROXINE50 MCG PO (15:09)
[2024-10-10] MEDS ORDERED: PREDNISONE20 MG PO (15:45)
[2024-10-10] MEDS ORDERED: VENTOLIN HFA18 GM INH (15:45)
[2024-10-10] MEDS ORDERED: AZITHROMYCIN250 MG PO (15:45)
[2024-10-10 15:55] VITALS: PULSE 80; RESP 18; TEMP 97.5; O2SAT 100
== END 2024-10-10 15:55 | disposition home or self-care (01) ==
LOC: FSED 14:35
DX: J06.9 Acute upper respiratory infection, unspecified (principal); I11.0 Hypertensive heart disease with heart failure; I50.9 Heart failure, unspecified; E03.9 Hypothyroidism, unspecified; E78.5 Hyperlipidemia, unspecified; I25.2 Old myocardial infarction
CPT/HCPCS: 0223U; 71046; 83518; 87400; 93005; 99284; J7512